=== PATIENT | male | born 1980 | race Caucasian/White ===

== ENCOUNTER → 2022-10-22 08:53 | Outpatient (REF) | payer OTHER, SELFPAY ==
--- NOTE | 2022-10-22 09:02 | CA_ITS ---
Transthoracic Echocardiogram Patient (Last, First, Middle): Michael Templeton, Gender: Male Date of : 1980 Age: 42 Procedure Date: 10/22/2022 Procedure Type: Transthoracic Echocardiogram Location: OP Height: 185.42 cm Weight: 77.11 kg BSA: 2.01 m2 Heart Rate: bpm BP: 126 / 78 mmHg Tool Design Draftsperson: TO Referring MD: Carmina Wild MD Symptoms: FREDERICK R06.00 Study Quality: Adequate ECG Rhythm: Sinus Conclusions: - The left ventricular systolic function is normal. The calculated ejection fraction is 61% by biplane method. - No obvious valvular pathology seen on this study. - The inferior vena cava is dilated and collapses greater than 50% with inspiration. Findings Left Ventricle Normal left ventricular cavity size. There is normal left ventricular wall thickness. The left ventricular systolic function is normal. The calculated ejection fraction is 61% by biplane method. There is no evidence of regional wall motion abnormalities. Diastolic function is normal for age. LV peak GLS -22.1%. Right Ventricle Normal right ventricular cavity size and systolic function. Atria Both atria are normal in size. Aortic Valve There is a normal trileaflet aortic valve. There is no aortic valve stenosis. There is no aortic valve regurgitation. Mitral Valve The mitral valve appears normal. There is trace mitral valve regurgitation. There is no mitral valve stenosis. Pulmonic Valve The pulmonic valve is likely normal. Tricuspid Valve There is trace tricuspid valve regurgitation. There is no evidence of pulmonary hypertension. Great Vessels The asc aorta is normal in size. Venous The inferior vena cava is dilated and collapses greater than 50% with inspiration. Pericardium/Pleural There is no evidence of pericardial effusion. Prior Study Comparison No prior study available for comparison. Recommendations, Care & Conclusions No obvious valvular pathology seen on this study. Measurements 2D Linear Measurements IVSd: 0.83 0.6-0.9/0.6-1.0 cm LVIDd: 5.08 3.9-5.3/4.2-5.9 cm LVIDd Index: 2.53 2.4-3.2/2.2-3.1 cm/m2 LVIDs: 3.06 2.0-3.6 cm LVPWd: 0.85 0.7-1.1 cm LA Diam: 3.40 2.7-3.8/3.0-4.0 cm LAIDs Index: 1.69 1.5-2.3 cm/m2 LV Mass: 184.93 67-162/88-224 g LV Mass Index: 92.01 43-95/49-115 g/m2 LVOT Diam: 2.00 3.0+(-)1.3 cm 2D Systolic Function EF 4C: 57.90 >55% EF 2C: 64.30 >55% EF BiP: 61.30 >55% Mitral Valve MV VTI: 0.36 MV Pk Vidal: 0.92 MV Mn Vidal: 0.53 MV Pk Grad: 3.00 MV Mn Grad: 1.00 MV Pk E: 0.81 MV PK A: 0.44 MV Decel Time: 268.00 E/A: 1.80 E'Lateral: 14.50 E'Medial: 11.50 E/E' Med: 7.10 E/E' Lat: 5.60 PHT: 79.00 MVA PHT: 2.78 MVA Continuity: 2.51 Decel Cuming: 3.03 Aortic Valve AoV Pk Vidal: 1.48 AoV Mn Vidal: 0.99 AoV VTI: 0.34 AoV Pk Grad: 9.00 Aov Mn Grad: 5.00 POLLO Cont.VTI: 2.67 LVOT LVOT Pk Vidal: 1.22 LVOT Mn Vidal: 0.83 LVOT VTI: 0.29 LVOT Pk Grad: 6.00 LVOT Mn Grad: 3.00 LVOT Diam: 2.00 LVOT Area: 3.14 Diastolic Function MV Pk E: 0.81 MV Pk A: 0.44 E/A: 1.80 E'Medial: 11.50 E/E' Med: 7.10 E' Laterial: 14.50 E/E' Lat: 5.60 Right Ventricle TAPSE (mm): 26.10 TVS' Vidal: 17.50 Tricuspid Valve TR Pk Vidal: 1.93 TR Pk Grad: 15.00 RA Press: 8.00 RVSP: 23.00 Great Vessels Aorta Sinus of Valsalva: 3.48 2.0-3.5 cm Ao Asc: 2.90 2.1-3.4 cm Updated in Other Vendor System with Status of Final Luther Brunson MD electronically signed on 10/23/2022 1:02:03 PM with status of Final
== END ==
LOC: HO.CARD 08:53
PROVIDERS: PCP Family Medicine; Visit Provider Family Medicine
DX: R06.00 Dyspnea, unspecified (principal)
CPT/HCPCS: 93306; 93356